=== PATIENT | male | born 1970 | race Caucasian/White ===

== ENCOUNTER 2016-06-01 11:19 | Inpatient (IN) | payer OTHER, MEDICAID ==
[~2016-06-01] VITALS: Ht 172.7 cm; Wt 49.0 kg
[~2016-06-01 11:19] MED LIST: DIF100 PO; LIPA1CAP23 PO; SSREG SUBCUT
--- NOTE | 2016-06-01 11:20 | NUR ---
Patient to ER bed 8 to gown for evaluation. Side rails up. Assumed care.
--- NOTE | 2016-06-01 11:21 | NUR ---
Pt presesnt to ED c/o Abd pain x 1 day. Pt h/o pancreatitis,hyperlipidemia,dm and bipolar. Pt appears to be in severe pain. Pt demanding w/ tx.
--- NOTE | 2016-06-01 11:30 | NUR ---
ER at bedside examining patient.
[2016-06-01 11:41] VITALS: BP 122/94; PULSE 12; RESP 16; TEMP 97.4; O2SAT 98
[2016-06-01 12:14] LABS: BASOPHILS # (AUTO) 0.1 K/uL (0.0-0.2); BASOPHILS % (AUTO) 1.3 % (0.0-2.0); EOSINOPHILS % (AUTO) 0.2 % (0.0-4.0); LYMPHOCYTES # (AUTO) 1.5 K/uL (1.0-5.5); LYMPHOCYTES % (AUTO) 16.4 % (20.5-51.5); MEAN CORPUSCULAR HEMOGLOBIN 23 pg (27-31); MEAN CORPUSCULAR HGB CONC 30 % (32-36); MEAN CORPUSCULAR VOLUME 77 fL (79.0-98.0); MONOCYTES # (AUTO) 0.4 K/uL (0.0-1.0); MONOCYTES % (AUTO) 4.3 % (1.7-9.3); NEUTROPHILS # (AUTO) 7.3 K/uL (1.8-7.7); NEUTROPHILS % (AUTO) 77.8 % (40.0-70.0); PLATELET COUNT (AUTO) 174 K/uL (130-430); RED BLOOD CELL COUNT(AUTO) 5.62 MIL/uL (4.2-6.2); RED CELL DISTRIBUTION WIDTH 16.9 % (9.0-15.0); WHITE BLOOD COUNT (AUTO) 9.3 K/uL (4.8-10.8)
[2016-06-01] MEDS ORDERED: NACL 0.9% 1,000 ML IV ONE ×3 (12:15→21:15)
[2016-06-01] MEDS ORDERED: HYDROmorphone 1 MG INJ. 1 MG/ML AMPUL IVP ONE ×2 (12:15→14:00)
[2016-06-01] MEDS ORDERED: DIPHENHYDRAMINE INJ 50 MG/ML VIAL IVP ONE (12:15)
[2016-06-01 12:27] LABS: CALCIUM 9.1 mg/dL (8.4-11.0); CREATININE 1.04 mg/dL (0.55-1.30)
--- NOTE | 2016-06-01 12:30 | NUR ---
pt medicated tolerated well. continuing to monitor.
[2016-06-01 12:31] LABS: ALBUMIN 4.4 g/dL (3.4-4.8); TOTAL BILIRUBIN 0.8 mg/dL (0.0-1.0); TOTAL PROTEIN, SERUM 7.9 g/dL (6.4-8.3)
[2016-06-01] MEDS ORDERED: ONDANSETRON HCL 4 MG/2 ML VIAL IVP ONE (13:15)
--- NOTE | 2016-06-01 13:30 | NUR ---
Pt tolerated medication for n/v. Pt requesting to be left alone afetr medication.
--- NOTE | 2016-06-01 14:30 | NUR ---
Pt medicated for pain. Pt tolerated wel..
--- NOTE | 2016-06-01 15:30 | NUR ---
Pt required iv access to be reestablished. Several attempts made befor establishing iv.
[2016-06-01] MEDS ORDERED: GLUCOSE 15 GM GEL (in 37.5 GM TUBE) PO PRN ×2 (15:45)
[2016-06-01] MEDS ORDERED: DEXTROSE 50%-WATER 50 ML DISP.SYRIN IVP PRN ×2 (15:45)
--- NOTE | 2016-06-01 16:05 | NUR ---
Patient will be admitted to care of . Admitted to Med Surg unit. Will go to room 105B. Summary report printed. Report given to Admission RN.
--- NOTE | 2016-06-01 16:09 | NUR ---
ADMISSION: The patient, SONIA DASILVA JR, 45 y/o, M admitted by JJ LANCE MD, was given written information regarding hospital policies, unit procedures and contact persons.
--- NOTE | 2016-06-01 16:10 | NUR ---
REFUSED PT REFUSES TO ANSWERS QUESTION AT THIS TIME. PT AWAKE, ALERT AND ORIENTED. REFUSES TO PUT THE SIDERAILS UP ON ONE SIDE. TRYING TO EDUCATE PT BUT REFUSES TO LISTEN AT THIS TIME. NURSE AIMEE AWARE. PT IN BED AT THIS TIME, NO DISTRESS NOTED. WANTS HIS PAIN MEDICATION.
[2016-06-01] MEDS ORDERED: MORPHINE 4 MG/ML INJ. SYRINGE IVP PRN (16:15)
[2016-06-01] MEDS ORDERED: MORPHINE 2 MG/ML INJ. SYRINGE IVP PRN (16:15)
[2016-06-01] MEDS ORDERED: ACETAMINOPHEN 325 MG TABLET PO PRN (16:15)
[2016-06-01] MEDS: D5/0.45 NS 1,000 ML IV SCH (17:06)
[2016-06-01] MEDS: DIPHENHYDRAMINE INJ 50 MG/ML VIAL IVP PRN ×2 (17:07→23:13)
[2016-06-01] MEDS: ONDANSETRON HCL 4 MG/2 ML VIAL IVP PRN ×2 (17:08→23:13)
[2016-06-01] MEDS: INSULIN REGULAR, HUMAN 100 UNITS/ML, 10 ML VIAL (novoLIN R) SUBCUT PRN ×2 (17:26→21:01)
[2016-06-01 17:27] VITALS: BP 146/88; PULSE 99; RESP 17; TEMP 98.2; O2SAT 100
--- NOTE | 2016-06-01 17:51 | NUR ---
Rounds: Pt sitting semi-fowlers in bed. Medicated for c/o pain, nausea, and generalized itching. Educated pt on need to call for assist prior to ambulating and pt refuses states "Why do I need to call?! I don't need help!" Pt is alert and oriented x4. Pt also refuses upper side rails at this time. Pt is irritable and easily agitated. Will attempt to re-educate pt at later time. Bed alarm on. Continue to monitor pt closely.
--- NOTE | 2016-06-01 18:43 | NUR ---
Closing Note: Pt sitting semi-fowlers in bed. Pt sleeping at this time, breathing even and unlabored on room air. Call light in reach. Bed alarm on. Endorse plan of care to SABRA RN.
--- NOTE | 2016-06-01 19:30 | NUR ---
notes pt awaken for vs but refused ,pt also refusing to call for a nurse if he needs to go to the bathroom ,states he does not need to call because he has been walking for 45 years.asking for pain medication but was told that it is not time yet,call light within reach,safety measures in progress.continue to monitor.bed alarm turned on.
--- NOTE | 2016-06-01 20:27 | NUR ---
notes lab here to draw blood pt refusing.
--- NOTE | 2016-06-01 20:51 | NUR ---
NOTES ACCUCHECK WAS [address] LANCE
--- NOTE | 2016-06-01 21:10 | NUR ---
notes sakshi from the lab here to draw the pts blood .lab intern.states the pt refused.pt keeps asking for pain medication.was explained to him that the dr will put the order in but it takes a few min.for the pharmacy to put the order in the computer.pt was told this .every time he asked where is the pain medication.
[2016-06-01] MEDS: HYDROmorphone 1 MG INJ. 1 MG/ML AMPUL IVP PRN (21:30)
[2016-06-01 21:33] VITALS: BP 124/77; PULSE 97; RESP 18; TEMP 97.8; O2SAT 100
--- NOTE | 2016-06-01 21:48 | NUR ---
NOTES DR MATUTE IS AT THE BEDSIDE.
--- NOTE | 2016-06-01 21:54 | NUR ---
PAIN PAIN MEDICATION GIVEN ORDERED. VS STABLE. WILL CONTINUE TO MONITOR AND REASSESS.
--- NOTE | 2016-06-01 23:31 | NUR ---
NOTES PT RESTING QUIETLY.CALL LIGHT WITHIN REACH. CONTINUE TO MONITOR.
[2016-06-02 01:17] VITALS: BP 122/68; PULSE 82; RESP 18; TEMP 98.2; O2SAT 99
[2016-06-02] MEDS: HYDROmorphone 1 MG INJ. 1 MG/ML AMPUL IVP PRN (01:30)
[2016-06-02] MEDS: D5/0.45 NS 1,000 ML IV SCH ×2 (01:31→12:45)
--- NOTE | 2016-06-02 01:35 | NUR ---
CONSULT: DR. MATUTE CAME LAST NIGHT HE TOOK CARE OF THE CONSULT ALREADY.
--- NOTE | 2016-06-02 01:43 | NUR ---
notes pt resting with eyes closed,continue to monitor.
--- NOTE | 2016-06-02 02:49 | NUR ---
notes pt asking for pain medication.RN was notified.
--- NOTE | 2016-06-02 03:17 | NUR ---
notes pt keeps turning his light on and asking for pain medication ,was told that he can have pain medication at 0330.pt states he might go out side and get some fresh air.pt was told that he can not go out side at this time.pt stated 'WHY,I WENT OUTSIDE LAST TIME I WAS HERE.
[2016-06-02] MEDS: HYDROmorphone 2 MG/ML VIAL IVP PRN ×7 (04:31→23:29)
--- NOTE | 2016-06-02 04:33 | NUR ---
vitals pt refused to have his vitals taken . marina sales and service supervisor aware.
--- NOTE | 2016-06-02 05:00 | NUR ---
PT OUT OF BED PT GOT DRESSED IN HIS SHIRT AND PANTS. WALKING WITH IV POLE AND SAID HE'S GOING OUTSIDE. TOLD PT NOW IS NOT A GOOD TIME. PAIN MED GIVEN 30MIN AGO. EDUCATED PT ON FALL RISKS. PT SAYS HE FINE AND HE'S NOT GOING TO FALL. HEALTH SCIENCES MANAGER WALKING CLOSE BY AND SECURITY CALLED.
--- NOTE | 2016-06-02 05:18 | NUR ---
notes pt returned to his room ,security at his side. will continue to monitor.
--- NOTE | 2016-06-02 05:40 | NUR ---
notes slab off mill tender is at the bedside to draw blood. pt is going to let her draw his blood because she did a good job when he was in the ER yesterday.
[2016-06-02] MEDS: ONDANSETRON HCL 4 MG/2 ML VIAL IVP PRN ×2 (05:55→20:21)
[2016-06-02] MEDS: DIPHENHYDRAMINE INJ 50 MG/ML VIAL IVP PRN ×3 (05:56→20:22)
[2016-06-02] MEDS: INSULIN REGULAR, HUMAN 100 UNITS/ML, 10 ML VIAL (novoLIN R) SUBCUT PRN ×2 (06:07→11:18)
--- NOTE | 2016-06-02 06:13 | NUR ---
closing notes accucheck was 202 insulin per s/s given jello given per request,will endorse the care of the pt to the day nurse.
[2016-06-02 07:25] LABS: ALBUMIN 3.6 g/dL (3.4-4.8); CALCIUM 8.5 mg/dL (8.4-11.0); CREATININE 0.77 mg/dL (0.55-1.30); POTASSIUM 3.5 mmol/L (3.5-5.1); TOTAL BILIRUBIN 0.5 mg/dL (0.0-1.0); TOTAL PROTEIN, SERUM 6.7 g/dL (6.4-8.3)
--- NOTE | 2016-06-02 07:25 | NUR ---
am rounds; patient lying on the bed,awake,alert and oriented x4. ivf on going at left arm intact. no distress.call light with in reach. needs attended to. patient refused bed alarm on.
[2016-06-02 08:04] LABS: BASOPHILS % (AUTO) 0.6 % (0.0-2.0); EOSINOPHILS % (AUTO) 0.4 % (0.0-4.0); HEMATOCRIT 36.3 % (36-54); HEMOGLOBIN 11.3 g/dL (14.0-18.0); LYMPHOCYTES % (AUTO) 20.6 % (20.5-51.5); MEAN CORPUSCULAR HEMOGLOBIN 24 pg (27-31); MEAN CORPUSCULAR HGB CONC 31 % (32-36); MEAN CORPUSCULAR VOLUME 77 fL (79.0-98.0); MONOCYTES # (AUTO) 0.4 K/uL (0.0-1.0); MONOCYTES % (AUTO) 8.9 % (1.7-9.3); NEUTROPHILS # (AUTO) 3.6 K/uL (1.8-7.7); NEUTROPHILS % (AUTO) 69.5 % (40.0-70.0); RED BLOOD CELL COUNT(AUTO) 4.73 MIL/uL (4.2-6.2); RED CELL DISTRIBUTION WIDTH 17.2 % (9.0-15.0)
[2016-06-02 08:05] LABS: PLATELET COUNT (AUTO) 103 K/uL (130-430)
--- NOTE | 2016-06-02 08:16 | NUR ---
pain meds: c/o abominal pain and due iv pain meds given per request.
[2016-06-02 08:34] VITALS: BP 128/80; PULSE 78; RESP 19; TEMP 98; O2SAT 100
--- NOTE | 2016-06-02 09:36 | NUR ---
Patient hygiene : Patient stated that he was itchy and uncomfortable. Offer patient a bed bath and for his linen to be changed. The patient refused and yelled stated that that would not help him. Notified the RN
--- NOTE | 2016-06-02 09:46 | NUR ---
PAGED: Paged dr barfield for pt c/o itching,iv benadryl not due yet,and pt wants meds for itching.left message c/o exchange corona.
--- NOTE | 2016-06-02 10:04 | NUR ---
Nutrition Update Inocencio Scale 18 noted. Pt admitted for pancreatitis. Diet: clear liquid BMI: 16 kg/m2 RD to follow per nutrition care standards.
--- NOTE | 2016-06-02 10:11 | NUR ---
benadryl: give benadryl 25mg ivp x [address] barfield.
--- NOTE | 2016-06-02 10:13 | NUR ---
rn notes: accompanied patient outside and went back to his room after 20mins.
[2016-06-02] MEDS ORDERED: DIPHENHYDRAMINE INJ 50 MG/ML VIAL IVP ONE (10:15)
--- NOTE | 2016-06-02 10:20 | NUR ---
ITCHING: DUE IV BENADRYL 25MG GIVEN PER REQUEST.
--- NOTE | 2016-06-02 11:22 | NUR ---
PAIN MEDS: C/O ABDOMINAL PAIN AND DUE IV PAIN MEDS GIVEN PER REQUEST.
--- NOTE | 2016-06-02 11:23 | NUR ---
BLOOD SUGAR: BLOOD SUGAR TAKEN,WITH INSULIN COVERAGE GIVEN PER SLIDING SCALE. BLOOD INAHU=540TX/DL ,MD INFORMED WILL SEE PATIENT.
[2016-06-02 12:12] VITALS: BP 113/67; PULSE 58; RESP 16; TEMP 98; O2SAT 97
--- NOTE | 2016-06-02 12:17 | NUR ---
Consult Called Reason for consultation: Pancreatis Was consult called: yes Person who was notified:Luci Coater Operator Physician: SARAN PRATT Ordered by : Shante Heard MD
--- NOTE | 2016-06-02 12:28 | NUR ---
rounds: resting. stable.
--- NOTE | 2016-06-02 12:53 | NUR ---
Consult Called Reason for consultation: Diabetes Was consult called: Yes Person who was notified: Liv Consulting Physician: Andrés Graves MD Entry Level Marketing Representative Specialty ENDO Ordered by: Shante Heard MD
--- NOTE | 2016-06-02 14:08 | NUR ---
PAIN MEDS: C/O ABDOMINAL PAIN AND DUE IV PAIN MEDS GIVEN PER REQUEST.
--- NOTE | 2016-06-02 15:58 | NUR ---
Nutrition Note MARIANO was instructed by Dr. Graves to advance pt's diet to full liquid for now until pt is seen by DARIA NARVAEZ. MARIANO modified pt's diet order via TO/RB. RD to continue to follow per nutrition care standards. Addendum: 06/02/16 at [address] Dr. Graves stated that DARIA NARVAEZ may want to keep pt clear liquid as written in most recent progress note in pt's hard chart. MARIANO modified diet order via TO/RB to clear liquid diet.
--- NOTE | 2016-06-02 16:04 | NUR ---
ITCHING: C/O ITCHING AND DUE IV BENADRYL GIVEN PER REQUEST.
[2016-06-02 16:50] VITALS: BP 112/91; PULSE 80; RESP 16; TEMP 97.6; O2SAT 95
[2016-06-02] MEDS: INSULIN ASPART 100 UNITS/ML, 10 ML VIAL (NovoLOG) SUBCUT PRN (17:27)
--- NOTE | 2016-06-02 17:29 | NUR ---
BLOOD SUGAR: BLOOD SUGAR TAKEN,WITH INSULIN COVERAGE GIVEN PER SLIDING SCALE. WILL CALL ENDO FOR HIGH BLOOD SUGAR.
--- NOTE | 2016-06-02 19:40 | NUR ---
end of shift: endorsed to night nurse,pt in stable. paged dr valerio for high blood sugar.continue to monitor.
--- NOTE | 2016-06-02 19:45 | NUR ---
PAGED PAGED Oscar ESPAÑAUHAIR AT [phone] SPOKE WITH BESSY.
[2016-06-02 20:00] VITALS: BP 118/68; PULSE 88; RESP 18; TEMP 98.2; O2SAT 93
--- NOTE | 2016-06-02 20:00 | NUR ---
OPENING ASSESSMENT PATIENT ALERT/ORIENTED X4. SPEECH IS CLEAR AND APPROPRIATE. AMBULATES WITH STEADY GAIT @ THIS TIME.. REFUSED BED ALARM. IS A FALL PRECAUTION. CALL LIGHT WITHIN EASY ACCESS. EDUCATED TO CALL NURSE FOR ALL NEEDS AND WHEN GETTING OUT OF BED. HAS IV LAC 18 G. SITE IS CLEAR. VOIDING CLEAR YELLOW.
[2016-06-02] MEDS: KCL 20 mEq in D5NS 1000 mL 1,000 ML IV SCH (20:10)
--- NOTE | 2016-06-02 20:20 | NUR ---
PAIN/NAUSEA/ITCHING MEDICATED FOR PAIN WITH DILAUDID 2MG IVP, NAUSEA WITH ZOFRAN 4MG IVP, ITCHING BENADRYL 25MG IVP.
--- NOTE | 2016-06-02 21:00 | NUR ---
BLOOD SUGAR 207 GAVE LEVEMIR ORDERED. REFUSED NOVOLOG INSULIN COVERAGE @ THIS TIME.
--- NOTE | 2016-06-02 23:30 | NUR ---
PAIN DILAUDID 2MG IVP GIVEN FOR ABDOMINAL PAIN.
--- NOTE | 2016-06-03 00:35 | NUR ---
ITCHING BENADRYL 25MG IVP FOR ITCHING.
[2016-06-03] MEDS: DIPHENHYDRAMINE INJ 50 MG/ML VIAL IVP PRN ×7 (00:36→19:40)
[2016-06-03 00:45] VITALS: BP 109/69; PULSE 86; RESP 18; TEMP 98.6; O2SAT 99
--- NOTE | 2016-06-03 02:50 | NUR ---
PAIN/NAUSEA DILAUDID 2MG IVP FOR PAIN AND ZOFRAN 4MG IVP FOR NAUSEA @ THIS TIME.
[2016-06-03] MEDS: HYDROmorphone 2 MG/ML VIAL IVP PRN ×8 (02:52→22:54)
[2016-06-03] MEDS: ONDANSETRON HCL 4 MG/2 ML VIAL IVP PRN ×3 (02:53→22:54)
[2016-06-03] MEDS: KCL 20 mEq in D5NS 1000 mL 1,000 ML IV SCH ×3 (04:19→23:30)
--- NOTE | 2016-06-03 04:20 | NUR ---
ITCHING BENADRYL 25MG IVP FOR ITCHING.
[2016-06-03 04:23] VITALS: BP 115/75; PULSE 86; RESP 18; TEMP 98.2; O2SAT 100
--- NOTE | 2016-06-03 05:45 | NUR ---
PAIN DILAUDID 2MG IVP GIVEN FOR ABDOMINAL PAIN.
--- NOTE | 2016-06-03 06:00 | NUR ---
BLOOD SUGAR 60 GAVE D50 1AMP.
--- NOTE | 2016-06-03 06:15 | NUR ---
BLOOD SUGAR 169 BLOOD SUGAR 169 AFTER GIVEN D50 1 AMP
--- NOTE | 2016-06-03 06:30 | NUR ---
CLOSING NOTES PT. REFUSES BED ALARM. CONTINUES FALL RISK. AMBULATES IN HALLWAY WITHOUT TELLING NURSE. STATES PAIN MEDICATION IS INEFFECTIVE. CALL LIGHT WITHIN EASY ACCESS. INFORMED PATIENT TO CALL NURSE FOR ALL NEEDS AND NOT TO GET OUT OF BED WITHOUT ASSIST.
[2016-06-03 08:11] VITALS: BP 145/87; RESP 18; TEMP 96.8; O2SAT 100
[2016-06-03 09:09] LABS: CALCIUM 8.4 mg/dL (8.4-11.0); CREATININE 0.61 mg/dL (0.55-1.30); POTASSIUM 3.1 mmol/L (3.5-5.1)
[2016-06-03 09:14] LABS: TOTAL BILIRUBIN 0.5 mg/dL (0.0-1.0); TOTAL PROTEIN, SERUM 7.3 g/dL (6.4-8.3)
--- NOTE | 2016-06-03 09:45 | NUR ---
Called Orquidea Goncalves R. about low K level -3.1.Awaiting for answer.
[2016-06-03] MEDS ORDERED: POTASSIUM CHLORIDE 20 MEQ TAB.PRT.SR PO ONE (11:00)
--- NOTE | 2016-06-03 12:37 | NUR ---
PT WANTS TO WALK AFTER GETTING HIS PAIN SHOT. INSTRUCTED PT NOT TO WALK AT THIS TIME BECAUSE HE JUST HAD HIS PAIN SHOTS BUT PT GETS ANGRY AND STILL INSISTED TO WALK.PT WALKS OUT ON THE ROOM.
[2016-06-03 13:04] VITALS: BP 120/75; PULSE 77; RESP 16; TEMP 97.1; O2SAT 98
[2016-06-03 13:15] VITALS: BP 112/69; PULSE 94; RESP 15; TEMP 97.1; O2SAT 100
--- NOTE | 2016-06-03 16:00 | NUR ---
IV IV WAS LEAKING AT THIS TIME. 3 RN'S ATTEMPTED TO START BUT UNSUCCESSFUL.
--- NOTE | 2016-06-03 17:00 | NUR ---
PAGED DR. LANCE RE: UNABLE TO START AN IV. WAITING FOR MD TO CALL BACK.
[2016-06-03 17:13] VITALS: BP 152/77; PULSE 67; RESP 18; TEMP 98.9; O2SAT 93
--- NOTE | 2016-06-03 17:14 | NUR ---
DIET PT WANTS TO EAT SANDWICH. ASKED DR. LAUGHLIN AND ORDERED TO CHANGED DIET TO FULL LIQUID.
--- NOTE | 2016-06-03 17:40 | NUR ---
BLOOD SUGAR BLOOD SUGAR IS 177. PT REFUSED INSULIN AT THIS TIME.
[2016-06-03] MEDS: LIPASE/PROTEASE/AMYLASE 1 CAP PO SCH (17:43)
--- NOTE | 2016-06-03 18:30 | NUR ---
CALLED DR. LANCE CALLED BACK AND ORDERED TO HAVE PICC LINE TONIGHT. PER IF THEY CAN'T PUT PICC LINE TONIGHT. CALLED DR. FONTENOT TO PUT A CENTRAL LINE TONIGHT. CHARGE NURSE AWARE.
[2016-06-03 19:22] LABS: INR 1.1 (0.80-1.20); PROTHROMBIN TIME 11.8 SECS (9.5-12.5)
--- NOTE | 2016-06-03 19:49 | NUR ---
Medicated with Dilaudid 2 mg and Benadryl 25 mg IVP on the left AC slow IVP. PICC line nurse will be coming tonight to insert a PICC LINE
--- NOTE | 2016-06-03 20:00 | NUR ---
Initial Notes Received patient laying in bed, awake, alert, oriented, irritable and uncooperative. Patient denies any acute distress at this time. Breathing even and unlabored on room air. Patient demanded current IV access removed due to leakage when flushed, removed per patient request, patient tolerated well. Needs addressed. Educated patient on use of call light for assistance and fall precautions, patient verbalized understanding. Call light in hand fall precautions in place, will continue to monitor. Spoke with PICC line nurse on telephone, nurse is on his way. Obtained consent for PICC line from patient, placed in chart.
--- NOTE | 2016-06-03 21:00 | NUR ---
Midline Inserted PICC line nurse unable to insert PICC. Midline inserted right upper arm, patent/clean/dry, no S/S infiltration noted. Patient tolerated well.
--- NOTE | 2016-06-03 21:57 | NUR ---
paged for Dr Graves, dialed . s/w Alon.
--- NOTE | 2016-06-03 22:00 | NUR ---
Refused Insulin and IVF, MD Aware Patient fingerstick bloodsugar 434. Rechecked other hand resulted in 455. Patient refusing sliding scale coverage and levemir insulin ordered. Educated patient on importance of controlling blood sugar and insulin ordered, patient continue to refuse. Dr. Graves paged and made aware, no new orders received. Will continue to monitor.
--- NOTE | 2016-06-04 | NUR ---
Rounds Patient resting in bed, awake, irritable. Patient denies any acute distress. Breathing even and unlabored. Patient continue to refuse IVF when offered, stating he only wants real food. Educated patient on ordered full liquid diet, and brought patient broths. Needs addressed. Call light in hand, fall precautions in place. Will continue to monitor.
[2016-06-04] MEDS: DIPHENHYDRAMINE INJ 50 MG/ML VIAL IVP PRN ×6 (00:01→21:20)
--- NOTE | 2016-06-04 00:45 | NUR ---
REFUSAL pt refused to have his vitals taken. WALLACE Burch is aware.
[2016-06-04] MEDS: HYDROmorphone 2 MG/ML VIAL IVP PRN ×7 (01:56→21:21)
--- NOTE | 2016-06-04 02:00 | NUR ---
Rounds Patient resting in bed, awake. Patient remains uncooperative and irritable. Denies any acute distress. Patient medicated for pain per MD orders. Call light in hand, fall precautions in place. Will continue to monitor.
[2016-06-04 03:44] VITALS: BP 140/80; PULSE 80; RESP 18; TEMP 98; O2SAT 98
--- NOTE | 2016-06-04 04:00 | NUR ---
Rounds and Noncompliance Patient resting in bed, awake, denies any acute distress or pain. Patient decided he wanted to go for a walk outside, and started to leave unit. I asked patient to allow someone to accompany him for safety, patient became irate and walked off unit on his own. Security was called and asked to keep an eye on patient while he walked around the building. Patient returned back to room approximately 15min later, in no acute distress. Call light in hand, fall precautions in place, will continue to monitor.
--- NOTE | 2016-06-04 06:01 | NUR ---
Noncompliance and Refusing Fingerstick Patient refusing fingerstick blood sugar at this time. Educated patient on importance, patient continue to refuse, will endorse to oncoming nurse. Patient walking off unit, says he is going for a walk, refusing to be accompanied by staff.
--- NOTE | 2016-06-04 06:10 | NUR ---
Patient back in room. Patient returned back to room, in no apparent distress. Patient continue to refuse fingerstick when asked.
--- NOTE | 2016-06-04 06:36 | NUR ---
Closing Notes Patient resting in bed, awake. Denies any acute distress or pain at this time. Breathing even and unlabored on room air. IV site patent/clean/dry, no S/S infection/infiltration noted. Needs addressed throughout shift. Call light in hand, fall precautions in place. Will continue to monitor for changes and safety, and endorse all patient care/needs to oncoming nurse.
--- NOTE | 2016-06-04 07:58 | NUR ---
AM ROUNDS: Patient is complaining of pain. Will medicate as ordered. Will continue to monitor.
[2016-06-04] MEDS: LIPASE/PROTEASE/AMYLASE 1 CAP PO SCH ×3 (08:14→17:39)
[2016-06-04] MEDS: KCL 20 mEq in D5NS 1000 mL 1,000 ML IV SCH ×2 (08:14→19:36)
[2016-06-04] MEDS: PANTOPRAZOLE SODIUM 40 MG TAB PO SCH (08:14)
[2016-06-04 08:23] VITALS: BP 124/79; PULSE 78; RESP 20; TEMP 98.8; O2SAT 99
--- NOTE | 2016-06-04 09:51 | NUR ---
MD ROUNDS: Dr. Stanton in to see patient.
--- NOTE | 2016-06-04 10:25 | NUR ---
MD ROUNDS: Dr. Heard in to see patient.
[2016-06-04] MEDS: INSULIN ASPART 100 UNITS/ML, 10 ML VIAL (NovoLOG) SUBCUT PRN ×2 (11:22→17:43)
[2016-06-04 12:00] VITALS: BP 117/83; PULSE 89; RESP 20; TEMP 99.3; O2SAT 98
[2016-06-04 12:33] LABS: CALCIUM 8.3 mg/dL (8.4-11.0); CREATININE 0.75 mg/dL (0.55-1.30); POTASSIUM 3.3 mmol/L (3.5-5.1)
[2016-06-04 12:46] LABS: ALBUMIN 3.5 g/dL (3.4-4.8); TOTAL BILIRUBIN 0.3 mg/dL (0.0-1.0); TOTAL PROTEIN, SERUM 6.5 g/dL (6.4-8.3)
[2016-06-04 12:51] LABS: BASOPHILS # (AUTO) 0.1 K/uL (0.0-0.2); BASOPHILS % (AUTO) 1.2 % (0.0-2.0); EOSINOPHILS # (AUTO) 0.1 K/uL (0.0-0.4); EOSINOPHILS % (AUTO) 1.5 % (0.0-4.0); HEMATOCRIT 33.3 % (36-54); HEMOGLOBIN 10.6 g/dL (14.0-18.0); LYMPHOCYTES # (AUTO) 1.2 K/uL (1.0-5.5); LYMPHOCYTES % (AUTO) 27.3 % (20.5-51.5); MEAN CORPUSCULAR HEMOGLOBIN 24 pg (27-31); MEAN CORPUSCULAR HGB CONC 32 % (32-36); MEAN CORPUSCULAR VOLUME 75 fL (79.0-98.0); MONOCYTES # (AUTO) 0.2 K/uL (0.0-1.0); MONOCYTES % (AUTO) 4.4 % (1.7-9.3); NEUTROPHILS # (AUTO) 2.8 K/uL (1.8-7.7); NEUTROPHILS % (AUTO) 65.6 % (40.0-70.0); PLATELET COUNT (AUTO) 89 K/uL (130-430); RED BLOOD CELL COUNT(AUTO) 4.43 MIL/uL (4.2-6.2); RED CELL DISTRIBUTION WIDTH 17.3 % (9.0-15.0); WHITE BLOOD COUNT (AUTO) 4.4 K/uL (4.8-10.8)
--- NOTE | 2016-06-04 12:51 | NUR ---
PATIENT RESTING: Patient resting quietly. No acute distress noted. Vital signs within normal range.
[2016-06-04 16:00] VITALS: BP 88/46; PULSE 84; RESP 21; TEMP 98.4; O2SAT 98
--- NOTE | 2016-06-04 16:10 | NUR ---
PATIENT RESTING: Patient resting quietly. No acute distress noted. Vital signs within normal range.
--- NOTE | 2016-06-04 18:19 | NUR ---
CLOSING NOTE: All needs met. No change in assessment. Will endorse to NOC shift nurse.
[2016-06-04 20:00] VITALS: BP 109/72; PULSE 91; RESP 18; TEMP 98.2
--- NOTE | 2016-06-04 20:00 | NUR ---
Opening Note Report received from Jas GONSALEZ. Patient is in stable condition. Ambulate around the unit frequently. MARIAH jerome is running D5NS+20mEqKCL@100. Patient is requesting pain meds alejandra three hours. Education provided to reduce risk of falls. Call light is within reach. Instructed to use it whenever in need of assistance.
--- NOTE | 2016-06-04 21:20 | NUR ---
Blood sugar Current blood sugar is 309. Will recheck and call MD if necessary.
--- NOTE | 2016-06-04 21:52 | NUR ---
Blood sugar Current blood sugar is 280. Coverage with Novolog is only before meals. Stated to the patient that I would call MD for further orders. Patient stated not to call MD and that he will refuse any medication for his current blood sugar.
[2016-06-05 00:18] VITALS: BP 149/61; PULSE 81; RESP 18; TEMP 98.4; O2SAT 99
--- NOTE | 2016-06-05 00:30 | NUR ---
Blood sugar Checked blood sugar per patient's request. Current blood sugar is 259. Novolog coverage is only before meals. Offered to call MD for orders. Patient stated not to because he will refuse any medication for the blood sugar.
[2016-06-05] MEDS: HYDROmorphone 2 MG/ML VIAL IVP PRN ×5 (00:43→15:06)
[2016-06-05] MEDS: ONDANSETRON HCL 4 MG/2 ML VIAL IVP PRN ×2 (01:19→13:01)
[2016-06-05] MEDS: DIPHENHYDRAMINE INJ 50 MG/ML VIAL IVP PRN ×6 (01:19→21:21)
--- NOTE | 2016-06-05 02:46 | NUR ---
Rounds Patient is resting in bed. Call light is within reach.
[2016-06-05 04:50] VITALS: BP 94/65; PULSE 84; RESP 16; TEMP 98.4; O2SAT 95
--- NOTE | 2016-06-05 04:50 | NUR ---
Rounds Current blood pressure is 94/64. Educated the patient on only taking pain medication and Benadryl as needed. However, patient keeps on request pain medication every three hours and Benadryl every four hours.
[2016-06-05] MEDS: KCL 20 mEq in D5NS 1000 mL 1,000 ML IV SCH ×3 (05:13→16:58)
--- NOTE | 2016-06-05 06:42 | NUR ---
Closing Note Patient is in stable condition. Currently ambulating in the unit. IV is RUE midline running D5NS+20mEq@100. Educating the patient on calling for assistance especially after receiving pain medication in order to prevent falls. Will give report to the oncoming nurse.
--- NOTE | 2016-06-05 07:49 | NUR ---
RN OPENING NOTES PT STANDING UPON ASSESSMENT AND APPEARS AGITATED, WANTS MORE FOOD THAN WAS PROVIDED PT A/O X4, VS: 96.9 TEMP, 135/88, 90 HR, 20RR, 94% ROOM AIR, PAIN 10/10 BED IN LOW POSITION AND CALL LIGHT WITHIN REACH
[2016-06-05 08:02] VITALS: BP 135/85; PULSE 90; RESP 18; TEMP 96.9; O2SAT 94
[2016-06-05] MEDS: PANTOPRAZOLE SODIUM 40 MG TAB PO SCH (08:31)
[2016-06-05] MEDS: LIPASE/PROTEASE/AMYLASE 1 CAP PO SCH ×3 (08:31→16:57)
--- NOTE | 2016-06-05 09:21 | NUR ---
Patient ambulating in hallway. Steady gait noted. Request the patient not to go outside with the IV. Addendum: 06/05/16 at 0928 by Vero Weinberg RN Pt reeducated that pain medication and Benadryl do increase his fall risk and he verbalized understanding.
--- NOTE | 2016-06-05 10:12 | NUR ---
RN ROUNDS PT STANDING AT BEDSIDE AND SAID HE WAS COMFORTABLE
--- NOTE | 2016-06-05 10:51 | NUR ---
DR LANCE AT BEDSIDE DR LANCE CHANGED DIET TO SOFT AND TOLD PT HE CAN DISCHARGE TODAY IF PT CAN TOLERATE LUNCH
--- NOTE | 2016-06-05 11:11 | NUR ---
Patient back from ambulating. Back to his room, stable.
--- NOTE | 2016-06-05 11:26 | NUR ---
PICC line assessment PICC line flushed with 10ml NS. Noted blood return to the red port only. Other purple port flushes but has no blood return noted. Site is intact with no signs of infiltration noted. Unused ports covered with blue steri caps.
[2016-06-05] MEDS: INSULIN ASPART 100 UNITS/ML, 10 ML VIAL (NovoLOG) SUBCUT PRN ×2 (11:50→17:44)
[2016-06-05 12:10] VITALS: BP 114/71; PULSE 79; RESP 18; TEMP 99.1; O2SAT 100
--- NOTE | 2016-06-05 12:52 | NUR ---
Emesis. Patient threw up 100ml of emesis after eating approx 30% of his lunch. Dr Heard in ER, paged.
--- NOTE | 2016-06-05 12:53 | NUR ---
PT NOT TOLERATING CHANGE IN DIET PT CAN NOT TOLERATE THE CHANGE TO MECH SOFT DIET. EMESIS 100 ML, DR LANCE INFORMED
--- NOTE | 2016-06-05 12:55 | NUR ---
Dr Heard informed that patient did not tolerate the diet and that he vomited 100ml. pt not being discharged yet.
--- NOTE | 2016-06-05 14:05 | NUR ---
RN ROUNDS PT IS STANDING AT BEDSIDE. PAIN MANAGEMENT APPEARS EFFECTIVE HE IS WALKING, LAUGHING AND EXHIBITING NO SIGN OF SEVERE PAIN.
--- NOTE | 2016-06-05 15:33 | NUR ---
Accucheck spot check 560mg/dl Pt states he feels like his blood glucose is low. Pt glucose is 50mg/dl. Pt requesting juice instead of glucose gel. Will reassess in 15 minutes. Addendum: 06/05/16 at 1609 by Vero Weinberg RN Accucheck 50mg/dl. Reassessed after 15 min - 101mg/dl.
[2016-06-05 15:38] VITALS: BP 105/65; PULSE 80; RESP 16; TEMP 97.8; O2SAT 99
--- NOTE | 2016-06-05 16:11 | NUR ---
Dietitian Mariola at bedside discussing pts diet and snacking for his diabetes.
--- NOTE | 2016-06-05 16:15 | NUR ---
RN ROUNDS PT IN BED RESTING AND APPEARS COMFORTABLE. CALL LIGHT WITHIN REACH
[2016-06-05 16:34] VITALS: Ht 172.7 cm; Wt 49.0 kg
--- NOTE | 2016-06-05 16:37 | NUR ---
Pt back from ambulating in hallway, per security, pt was outside smoking. Pt has steady gait.
--- NOTE | 2016-06-05 18:00 | NUR ---
Spoke with Dr Heard informed him that patient is still at the hospital. He asked what happened earlier and I repeated information about patient not tolerating diet at lunch time. Informed MD that I will assess pt with dinner to see if he tolerates. Md stated to discharge if he tolerates.
--- NOTE | 2016-06-05 18:12 | NUR ---
RN ROUNDS PATIENT EATING DINNER IN BED. PER DR LANCE, PT CAN BE DISCHARGED TONIGHT IF HE TOLERATES HIS MEAL. WILL CONTINUE TO MONITOR
--- NOTE | 2016-06-05 18:28 | NUR ---
Patient vomited . Dr Orquidea wood.
[2016-06-05] MEDS: HYDROmorphone 1 MG INJ. 1 MG/ML AMPUL IVP PRN ×2 (18:49→23:53)
--- NOTE | 2016-06-05 19:00 | NUR ---
RN CLOSING ROUNDS PT STANDING BY BEDSIDE AND IS TALKING JOVIAL WITH THE STAFF
[2016-06-05 19:12] VITALS: BP 107/68; PULSE 81; RESP 18; TEMP 98.4; O2SAT 99
--- NOTE | 2016-06-05 19:12 | NUR ---
INITIAL ROUNDS RECVD PT IN BED, A/A/OX3. NO C/O PAIN AND NO DISTRESS NOTED @ THIS TIME. V/S 107/68,98.4,81,18,99% RA. MIDLINE NOTED TO DAVID, NO INFILTRATE, WITH GOOD BLOOD RETURN ONLY WITH THE RED LUMEN. ALL EXTREMITIES ARE STRONG, AMBULATORY. DISCUSSED PLAN OF CARE WITH PT AND VERBALIZED UNDERSTANDING. CALL LIGHT WITHIN REACH, WILL CONT TO MONITOR.
--- NOTE | 2016-06-05 21:12 | NUR ---
ROUNDS PT IN BED WATCHING TV. NO S/S OF PAIN AND NO DISTRESS NOTED. BED IN LOW POSITION AND CALL LIGHT WITHIN REACH. WILL CONT TO MONITOR.
--- NOTE | 2016-06-05 23:12 | NUR ---
ROUNDS ADMIN DILAUDID PRN FOR GEN PAIN. WILL REASSESS AFTER 1 HOUR.
--- NOTE | 2016-06-05 23:55 | NUR ---
ADMIN DILAUDID ADMIN DILAUDID PRN FOR PAIN. WILL REASSESS AFTER 1 HOUR.
[2016-06-06] VITALS: BP 142/86; PULSE 70; RESP 16; TEMP 98.7; O2SAT 100
--- NOTE | 2016-06-06 01:12 | NUR ---
ROUNDS PT AWAKE @ THIS TIME, WATCHING TV. NO C/O PAIN AND NO SOB NOTED. CALL LIGHT WITHIN REACH, WILL CONT TO MONITOR.
--- NOTE | 2016-06-06 03:12 | NUR ---
ROUNDS PT IS IS AMBULATING IN HALLWAY @ THIS TIME. NO S/S OF PAIN OR ANY DISTRESS NOTED. WILL CONT TO MONITOR.
[2016-06-06] MEDS: DIPHENHYDRAMINE INJ 50 MG/ML VIAL IVP PRN ×2 (03:33→08:39)
[2016-06-06] MEDS: HYDROmorphone 2 MG/ML VIAL IVP PRN ×2 (03:35→09:25)
--- NOTE | 2016-06-06 03:37 | NUR ---
ADMIN DILAUDID AND BENADRYL ADMIN DILAUDID PRN FOR GEN PAIN. PT ALSO ASKED FOR BENADRYL D/T GEN ITCH. WILL REASSESS AFTER 1 HOUR.
[2016-06-06 04:36] VITALS: BP 122/74; PULSE 82; RESP 18; TEMP 98.9; O2SAT 94
--- NOTE | 2016-06-06 05:37 | NUR ---
ROUNDS PT IS AWAKE @ THIS TIME, WATCHING TV. NO C/O PAIN AND NO DISTRESS NOTED. BED IN LOW POSITION WITH CALL LIGHT WITHIN REACH. WILL CONT TO MONITOR.
--- NOTE | 2016-06-06 05:58 | NUR ---
SNACKS PROVIDED PT C/O OF BEING HUNGRY, SUGAR FREE JELLO AND BISCUIT PROVIDED. NO C/O PAIN @ THIS TIME. WILL CONT TO MONITOR.
--- NOTE | 2016-06-06 06:57 | NUR ---
FINAL NOTES PT IS AWAKE WAITING FOR BREAKFAST @ THIS TIME. NO S/S OF PAIN OR DISTRESS NOTED. V/S ARE WNL. ALL NEEDS MET AND ANTICIPATED BY NOC NURSES. BED IN LOW POSITION WITH CALL LIGHT WITHIN REACH. ENDORSED.
[2016-06-06 07:59] VITALS: BP 127/81; PULSE 76; RESP 18; TEMP 98.4; O2SAT 99
--- NOTE | 2016-06-06 08:00 | NUR ---
NOTE PT LYING ON SIDE OF BED AND ATE ALL HIS SOFT/LOW FIBRE BLAND DIET BREAKFAST. NO N/V NOTED. PT HAS NO SOB/RESP DISTRESS OR PAIN/DISCOMFORT NOTED AT THIS TIME. IVF'S INFUSING THROUGH RIGHT UPPER ARM MIDLINE. PT REQUESTING MORE COFFEE WITH SWEET AND LOW. CALL LIGHT WITHIN REACH.
[2016-06-06] MEDS: PANTOPRAZOLE SODIUM 40 MG TAB PO SCH (08:39)
[2016-06-06] MEDS: LIPASE/PROTEASE/AMYLASE 1 CAP PO SCH (08:39)
--- NOTE | 2016-06-06 10:00 | NUR ---
NOTE PT AMBULATING IN HALLWAY WITH IV POLE. REQUESTED AND REC'D PAIN IVP AT 0930AM. PT CONTINUES TO AMBULATE AND DRINK 2ND AND 3RD CUP OF COFFEE WITH SWEET AND LOW. PT ALSO REQUESTED AND REC'D ADDITIONAL BREAKFAST SAUSAGES AND SANDWICH.
--- NOTE | 2016-06-06 11:20 | NUR ---
NOTE DR LANEC CAME TO FLOOR AT 1030AM, ASSESSMENT OF PT COMPLETED. DISCHARGE ORDER GIVEN. PT WAS NOTIFIED AND QUESTIONS/CONCERNS WERE ANSWERED. DISCHARGE/TRANSITIONAL INSTRUCTIONS GIVEN AND PRESCRIPTIONS. PT VERBALIZES UNDERSTANDING. RIGHT MIDLINE DC'D PER DR LANCE'S VERBAL ORDER AT THIS TIME. PT DRESSED IN STREET CLOTHES. PT PACKED ALL BELONGINGS AT THIS TIME. PT CHECKED SIDE TABLE AND DRAWERS FOR BELONGINGS. [employer] CALLED PER PT'S REQUEST PT HAS NO TRANSPORTATION TO GO HOME AT THIS TIME. [employer] CALLED AT THIS TIME. PICKUP TIME WILL BE IN 35-40 MINUTES PT WAS NOTIFIED AT THIS TIME. PT STANDING AT SIDE TABLE AND EATING HIS CRACKERS (VANI CRACKERS). PT WAS EDUCATED ON EATING TOO MANY VANI CRACKERS BS AT THIS TIME IS 238. PT DISMISSED EDUCTION AND STATES HE EATS WHATEVER HE WANTS. NO NAUSEA/VOMITING NOTED ALL SHIFT. CALL LIGHT WITHIN REACH.
--- NOTE | 2016-06-06 11:35 | NUR ---
NOTE PT OFF THE FLOOR TO [facility] TO GO HOME. PT HAD ALL HIS BELONGINGS AND TRANSITIONAL INSTRUCTIONS AND PRESCRIPTIONS. NO SOB/RESP DISTRESS OR PAIN/DISCOMFORT OR N/V NOTED ALL SHIFT. PT STABLE AND NO NEEDS WERE NOTED.
== END 2016-06-06 11:40 | disposition home or self-care (01) | DRG 438 ==
LOC: SED 11:19 → SMU 15:00 → MERGE 15:00 → SMU 16:05
PROVIDERS: ADMIT Internal Medicine Hospice and Palliative Medicine; ATTEND Internal Medicine Hospice and Palliative Medicine
PROC: 05H633Z Insertion of Infusion Device into Left Subclavian Vein, Percutaneous Approach (ICD-10-PCS; principal; 2016-06-03)
PROC: B547ZZA Ultrasonography of Left Subclavian Vein, Guidance (ICD-10-PCS; 2016-06-03)
DX: K85.90 Acute pancreatitis without necrosis or infection, unspecified (principal); E43 Unspecified severe protein-calorie malnutrition; Z68.1 Body mass index [BMI] 19.9 or less, adult; K86.1 Other chronic pancreatitis; F31.9 Bipolar disorder, unspecified; E11.65 Type 2 diabetes mellitus with hyperglycemia; L29.8 Other pruritus; I10 Essential (primary) hypertension; K43.9 Ventral hernia without obstruction or gangrene; E78.1 Pure hyperglyceridemia; F17.210 Nicotine dependence, cigarettes, uncomplicated; G89.4 Chronic pain syndrome; L29.9 Pruritus, unspecified; Z79.4 Long term (current) use of insulin; Z88.6 Allergy status to analgesic agent; Z88.0 Allergy status to penicillin; Z88.8 Allergy status to other drugs, medicaments and biological substances; Z91.048 Other nonmedicinal substance allergy status; Z90.411 Acquired partial absence of pancreas
CPT/HCPCS: 36415; 71010; 80053; 82150-TC; 82962; 83690-TC; 85025; 85610-TC; 85730-TC; 96361; 96374; 96375; 96376; 99285; C1751; C1769; J1170; J1200; J1815; J2270; J2405; J7030

== ENCOUNTER 2016-07-31 12:06 | Emergency (ER) | payer OTHER, MEDICAID ==
[2016-06-05 16:34] VITALS: Ht 172.7 cm; Wt 59.0 kg
[~2016-07-31] VITALS: Ht 172.7 cm; Wt 59.0 kg
[2016-07-31 12:14] VITALS: BP 105/75; PULSE 107; RESP 18; TEMP 98.3; O2SAT 96
[2016-07-31] MEDS ORDERED: NACL 0.9% 1,000 ML IV ONE ×3 (12:15→14:45)
[2016-07-31] MEDS ORDERED: DIPHENHYDRAMINE INJ 50 MG/ML VIAL IVP ONE ×2 (12:30→14:45)
[2016-07-31] MEDS ORDERED: MORPHINE 2 MG/ML INJ. SYRINGE IVP ONE ×2 (12:30→14:45)
[2016-07-31] MEDS ORDERED: ONDANSETRON HCL 4 MG/2 ML VIAL IVP ONE (12:30)
[2016-07-31 13:27] LABS: ANION GAP 14 (5-15); CALCIUM 8.8 mg/dL (8.4-11.0); CHLORIDE 97 mmol/L (98-107); CREATININE 1.06 mg/dL (0.55-1.30); POTASSIUM 4.1 mmol/L (3.5-5.1); SODIUM SERUM 130 mmol/L (136-145); UREA NITROGEN, BLOOD 22 mg/dL (8-21)
[2016-07-31 13:28] LABS: ALANINE AMINOTRANSFERASE 27 U/L (12-78); ALBUMIN 3.8 g/dL (3.4-4.8); AMYLASE 18 U/L (0-100); ASPARTATE AMINOTRANSFERASE 9 U/L (10-37); LIPASE 112 U/L (73-393); TOTAL BILIRUBIN 0.5 mg/dL (0.0-1.0); TOTAL PROTEIN, SERUM 7.5 g/dL (6.4-8.3)
[2016-07-31 13:29] LABS: PROTHROMBIN TIME 10.7 SECS (9.5-12.5)
[2016-07-31 13:37] LABS: GFR AFRICAN AMERICAN 96 mL/min (>90)
[2016-07-31 13:40] LABS: BASOPHILS % (AUTO) 0.9 % (0.0-2.0); EOSINOPHILS # (AUTO) 0.1 K/uL (0.0-0.4); EOSINOPHILS % (AUTO) 1.7 % (0.0-4.0); HEMATOCRIT 38.2 % (36-54); HEMOGLOBIN 11.7 g/dL (14.0-18.0); LYMPHOCYTES # (AUTO) 1.1 K/uL (1.0-5.5); LYMPHOCYTES % (AUTO) 29.7 % (20.5-51.5); MEAN CORPUSCULAR HEMOGLOBIN 23 pg (27-31); MEAN CORPUSCULAR HGB CONC 31 % (32-36); MEAN CORPUSCULAR VOLUME 76 fL (79.0-98.0); MONOCYTES # (AUTO) 0.3 K/uL (0.0-1.0); MONOCYTES % (AUTO) 8.6 % (1.7-9.3); NEUTROPHILS # (AUTO) 2.2 K/uL (1.8-7.7); NEUTROPHILS % (AUTO) 59.1 % (40.0-70.0); PLATELET COUNT (AUTO) 111 K/uL (130-430); RED BLOOD CELL COUNT(AUTO) 5.05 MIL/uL (4.2-6.2); WHITE BLOOD COUNT (AUTO) 3.7 K/uL (4.8-10.8)
[2016-07-31 13:42] LABS: ACETONE, SERUM MODERATE (NEGATIVE)
[2016-07-31 13:47] LABS: GLUCOSE 728 mg/dL (70-99)
[2016-07-31] MEDS ORDERED: INSULIN REGULAR, HUMAN 10 UNITS/0.1 ML INJ IVP ONE (14:00)
[2016-07-31] MEDS ORDERED: INSULIN REGULAR, HUMAN 100 UNITS in NS 99 ML IV PRN ×2 (14:00)
[2016-07-31] MEDS ORDERED: DEXTROSE 50% JECT 50 ML DISP.SYRIN IVP PRN (14:00)
[2016-07-31 16:20] VITALS: BP 113/79; PULSE 82; RESP 18; TEMP 98.2; O2SAT 97
== END 2016-07-31 16:20 | disposition home or self-care (01) ==
LOC: SED 12:06 → MERGE 12:06 → SED 16:20
DX: E11.65 Type 2 diabetes mellitus with hyperglycemia (principal); E78.5 Hyperlipidemia, unspecified; F31.9 Bipolar disorder, unspecified; Z88.1 Allergy status to other antibiotic agents; F17.200 Nicotine dependence, unspecified, uncomplicated; Z71.6 Tobacco abuse counseling; Z91.048 Other nonmedicinal substance allergy status; Z88.6 Allergy status to analgesic agent; Z88.8 Allergy status to other drugs, medicaments and biological substances
CPT/HCPCS: 36415; 80053; 82009; 82150; 82962; 83690; 83735; 85025; 85610; 85730; 96361; 96374; 96375; 96376; 99285; J1200; J2270; J2405; J7030; J1815

== ENCOUNTER 2016-08-16 17:57 | Emergency (ER) | payer OTHER, MEDICAID ==
[~2016-08-16] VITALS: Ht 172.7 cm; Wt 59.0 kg
[2016-08-16 18:03] VITALS: BP_SYST 123
[2016-08-16] MEDS ORDERED: NACL 0.9% 1,000 ML IV ONE (18:31)
[2016-08-16 18:43] LABS: BASOPHILS # (AUTO) 0.1 K/uL (0.0-0.2); BASOPHILS % (AUTO) 0.7 % (0.0-2.0); EOSINOPHILS % (AUTO) 0.4 % (0.0-4.0); HEMATOCRIT 41.3 % (36-54); HEMOGLOBIN 12.6 g/dL (14.0-18.0); LYMPHOCYTES # (AUTO) 1.6 K/uL (1.0-5.5); LYMPHOCYTES % (AUTO) 21.4 % (20.5-51.5); MEAN CORPUSCULAR HEMOGLOBIN 23 pg (27-31); MEAN CORPUSCULAR HGB CONC 31 % (32-36); MEAN CORPUSCULAR VOLUME 76 fL (79.0-98.0); MONOCYTES # (AUTO) 0.3 K/uL (0.0-1.0); MONOCYTES % (AUTO) 3.3 % (1.7-9.3); NEUTROPHILS # (AUTO) 5.6 K/uL (1.8-7.7); NEUTROPHILS % (AUTO) 74.2 % (40.0-70.0); PLATELET COUNT (AUTO) 171 K/uL (130-430); RED BLOOD CELL COUNT(AUTO) 5.44 MIL/uL (4.2-6.2); RED CELL DISTRIBUTION WIDTH 22.7 % (9.0-15.0); WHITE BLOOD COUNT (AUTO) 7.6 K/uL (4.8-10.8)
[2016-08-16] MEDS ORDERED: ONDANSETRON HCL 4 MG/2 ML VIAL IVP ONE (18:45)
[2016-08-16] MEDS ORDERED: MORPHINE 4 MG/ML INJ. SYRINGE IVP ONE ×2 (18:45→19:30)
[2016-08-16 18:59] LABS: CALCIUM 8.8 mg/dL (8.4-11.0); CREATININE 1.08 mg/dL (0.55-1.30); POTASSIUM 4.6 mmol/L (3.5-5.1)
[2016-08-16 19:03] LABS: ALBUMIN 4.5 g/dL (3.4-4.8); TOTAL BILIRUBIN 0.5 mg/dL (0.0-1.0); TOTAL PROTEIN, SERUM 8.3 g/dL (6.4-8.3)
[2016-08-16] MEDS ORDERED: HYDROmorphone 2 MG/ML VIAL IVP ONE (20:00)
== END 2016-08-16 20:54 | disposition home or self-care (01) ==
LOC: SED 17:57
DX: K85.90 Acute pancreatitis without necrosis or infection, unspecified (principal); E11.9 Type 2 diabetes mellitus without complications; F31.9 Bipolar disorder, unspecified; Z79.4 Long term (current) use of insulin; Z88.6 Allergy status to analgesic agent; Z88.0 Allergy status to penicillin; Z88.8 Allergy status to other drugs, medicaments and biological substances; Z91.048 Other nonmedicinal substance allergy status
CPT/HCPCS: 36415; 80053; 82150; 83690; 85025; 96374; 96375; 96376; 99284; J1170; J2270; J2405; J7030; 96361

== ENCOUNTER 2017-03-06 05:27 | Emergency (ER) | payer OTHER, MEDICAID ==
[~2017-03-06] VITALS: Ht 172.7 cm; Wt 54.4 kg
[2017-03-06 05:37] VITALS: BP_SYST 122
[2017-03-06] MEDS ORDERED: NACL 0.9% 1,000 ML IV ONE (05:50)
[2017-03-06] MEDS ORDERED: ONDANSETRON HCL 4 MG/2 ML VIAL IVP ONE (06:00)
[2017-03-06 06:26] LABS: BILIRUBIN,URINE NEGATIVE (NEGATIVE); BLOOD, URINE NEGATIVE (NEGATIVE); CLARITY/URINE CLEAR (CLEAR); COLOR,URINE YELLOW (YELLOW); GLUCOSE,URINE 3+ (NEGATIVE); KETONES,URINE 3+ (NEGATIVE); LEUKOCYTE ESTERASE ,URINE NEGATIVE (NEGATIVE); NITRITE, URINE NEGATIVE (NEGATIVE); PROTEIN URINE NEGATIVE (NEGATIVE); UROBILINOGEN,URINE 0.2 (0.2-1.0)
[2017-03-06 06:29] LABS: BACTERIA,URINE FEW /HPF (None Seen); RBC,URINE 0-3 /HPF (0-3); WBC,URINE 0-3 /HPF (0-3)
[2017-03-06 06:44] LABS: CALCIUM 9.2 mg/dL (8.4-11.0); CREATININE 0.91 mg/dL (0.55-1.30); POTASSIUM 4.1 mmol/L (3.5-5.1)
[2017-03-06 06:45] LABS: ALBUMIN 4.4 g/dL (3.4-4.8); TOTAL BILIRUBIN 0.6 mg/dL (0.0-1.0)
[2017-03-06] MEDS ORDERED: DIPHENHYDRAMINE INJ 50 MG/ML VIAL IVP ONE (06:45)
[2017-03-06] MEDS ORDERED: MORPHINE 4 MG/ML INJ. SYRINGE IVP ONE ×2 (06:45→07:00)
[2017-03-06 06:47] LABS: BASOPHILS % (AUTO) 0.8 % (0.0-2.0); EOSINOPHILS % (AUTO) 0.5 % (0.0-4.0); HEMATOCRIT 44.7 % (36-54); HEMOGLOBIN 14.1 g/dL (14.0-18.0); LYMPHOCYTES # (AUTO) 1.4 K/uL (1.0-5.5); LYMPHOCYTES % (AUTO) 23.6 % (20.5-51.5); MEAN CORPUSCULAR HEMOGLOBIN 26 pg (27-31); MEAN CORPUSCULAR HGB CONC 32 % (32-36); MEAN CORPUSCULAR VOLUME 82 fL (79.0-98.0); MONOCYTES # (AUTO) 0.3 K/uL (0.0-1.0); MONOCYTES % (AUTO) 4.4 % (1.7-9.3); NEUTROPHILS # (AUTO) 4.2 K/uL (1.8-7.7); NEUTROPHILS % (AUTO) 70.7 % (40.0-70.0); PLATELET COUNT (AUTO) 229 K/uL (130-430); RED BLOOD CELL COUNT(AUTO) 5.49 MIL/uL (4.2-6.2); RED CELL DISTRIBUTION WIDTH 22.6 % (9.0-15.0); WHITE BLOOD COUNT (AUTO) 5.9 K/uL (4.8-10.8)
[2017-03-06] MEDS ORDERED: PROMETHAZINE HCL 25 MG/ML AMP IVP ONE (07:00)
[2017-03-06] MEDS ORDERED: INSULIN REGULAR, HUMAN 10 UNITS/0.1 ML INJ IVP ONE ×2 (07:15)
[2017-03-06 07:50] VITALS: BP_SYST 118
== END 2017-03-06 07:50 | disposition home or self-care (01) ==
LOC: SED 05:27
DX: R10.13 Epigastric pain (principal); R11.2 Nausea with vomiting, unspecified; E11.9 Type 2 diabetes mellitus without complications; F32.9 Major depressive disorder, single episode, unspecified; F17.200 Nicotine dependence, unspecified, uncomplicated; Z79.4 Long term (current) use of insulin; Z90.49 Acquired absence of other specified parts of digestive tract; Z88.6 Allergy status to analgesic agent; Z88.5 Allergy status to narcotic agent; Z88.0 Allergy status to penicillin; Z91.048 Other nonmedicinal substance allergy status
CPT/HCPCS: 36415; 80053; 81000; 83690; 85025; 96361; 96374; 96375; 96376; 99284; J1200; J1815; J2270; J2405; J2550; J7030

== ENCOUNTER 2017-04-11 00:26 | Inpatient (IN) | payer OTHER, MEDICAID ==
[~2017-04-11] VITALS: Ht 172.7 cm; Wt 44.9 kg
[2017-04-11 00:34] VITALS: BP_SYST 114
[2017-04-11] MEDS ORDERED: HYDROmorphone 1 MG INJ. 1 MG/ML AMPUL IVP ONE ×2 (01:00→04:15)
[2017-04-11] MEDS ORDERED: HYDROmorphone 2 MG/ML VIAL IM ONE (02:15)
[2017-04-11 02:27] LABS: BASOPHILS % (AUTO) 0.7 % (0.0-2.0); EOSINOPHILS % (AUTO) 0.3 % (0.0-4.0); HEMATOCRIT 40.3 % (36-54); HEMOGLOBIN 13.1 g/dL (14.0-18.0); LYMPHOCYTES # (AUTO) 1.4 K/uL (1.0-5.5); MEAN CORPUSCULAR HEMOGLOBIN 28 pg (27-31); MEAN CORPUSCULAR HGB CONC 32 % (32-36); MEAN CORPUSCULAR VOLUME 85 fL (79.0-98.0); MONOCYTES # (AUTO) 0.3 K/uL (0.0-1.0); MONOCYTES % (AUTO) 5.8 % (1.7-9.3); NEUTROPHILS # (AUTO) 3.5 K/uL (1.8-7.7); NEUTROPHILS % (AUTO) 67.2 % (40.0-70.0); PLATELET COUNT (AUTO) 162 K/uL (130-430); RED BLOOD CELL COUNT(AUTO) 4.73 MIL/uL (4.2-6.2); RED CELL DISTRIBUTION WIDTH 19.4 % (9.0-15.0); WHITE BLOOD COUNT (AUTO) 5.2 K/uL (4.8-10.8)
[2017-04-11 02:29] LABS: CALCIUM 9.7 mg/dL (8.4-11.0); CREATININE 1.28 mg/dL (0.55-1.30); POTASSIUM 4.9 mmol/L (3.5-5.1)
[2017-04-11 02:32] LABS: ALBUMIN 3.5 g/dL (3.4-4.8); TOTAL BILIRUBIN 0.6 mg/dL (0.0-1.0)
[2017-04-11 02:52] LABS: BILIRUBIN,URINE 1+ (NEGATIVE); BLOOD, URINE NEGATIVE (NEGATIVE); CLARITY/URINE CLEAR (CLEAR); COLOR,URINE YELLOW (YELLOW); GLUCOSE,URINE 3+ (NEGATIVE); KETONES,URINE 3+ (NEGATIVE); LEUKOCYTE ESTERASE ,URINE NEGATIVE (NEGATIVE); NITRITE, URINE NEGATIVE (NEGATIVE); PH,URINE 5.5 (5.0-8.0); PROTEIN URINE NEGATIVE (NEGATIVE); UROBILINOGEN,URINE 0.2 (0.2-1.0)
[2017-04-11 03:16] LABS: BACTERIA,URINE RARE /HPF (None Seen); MUCUS,URINE None Seen /LPF (None Seen); RBC,URINE 0-3 /HPF (0-3); WBC,URINE 0-3 /HPF (0-3)
[2017-04-11] MEDS ORDERED: INSULIN REGULAR, HUMAN 10 UNITS/0.1 ML INJ SUBCUT ONE (03:30)
[2017-04-11] MEDS ORDERED: NACL 0.9% 1,000 ML IV ONE ×2 (04:00→05:00)
[2017-04-11] MEDS ORDERED: DIPHENHYDRAMINE INJ 50 MG/ML VIAL IVP ONE (04:15)
[2017-04-11] MEDS ORDERED: INSU100V9 SUBCUT (05:20)
[2017-04-11 05:54] LABS: BARBITURATE, URINE NEGATIVE (NEG <=200); BENZODIAZEPINE, URINE NEGATIVE (NEG <=150); CANNABINOID, URINE POSITIVE (NEG <=50); COCAINE, URINE NEGATIVE (NEG <=150); METHAMPHETAMINES SCREEN,URINE NEGATIVE (NEG <=500); OPIATE, URINE NEGATIVE (NEG <=100); PHENCYCLIDINE SCREEN,URINE NEGATIVE (NEG <=25); UR TRICYCLIC ANTIDEPRESSANTS NEGATIVE (NEG <=300); URINE AMPHETAMINE NEGATIVE (NEG <=500); URINE METHADONE NEGATIVE (NEG <=200); URINE OXYCODONE SCREEN NEGATIVE (NEG <=100); URINE PROPOXYPHENE SCREEN NEGATIVE (NEG <=300)
[2017-04-11] MEDS ORDERED: HYDROcodone/ACETAMIN 10-325 MG TAB PO PRN (06:15)
[2017-04-11] MEDS ORDERED: ONDANSETRON HCL 4 MG/2 ML VIAL IVP PRN (06:15)
[2017-04-11] MEDS ORDERED: ACETAMINOPHEN 325 MG TABLET PO PRN (06:15)
[2017-04-11] MEDS ORDERED: INSULIN NPH 100 UNITS/ML 10 ML VIAL SUBCUT ONE (06:15)
[2017-04-11 07:41] VITALS: BP_SYST 111
[2017-04-11 08:00] VITALS: BP_SYST 111
[2017-04-11] MEDS: INSULIN REGULAR, HUMAN 100 UNITS/ML, 10 ML VIAL (novoLIN R) SUBCUT PRN ×5 (08:10→23:01)
[2017-04-11] MEDS: HYDROmorphone 2 MG/ML VIAL IVP PRN ×4 (08:15→20:30)
[2017-04-11] MEDS: DIPHENHYDRAMINE INJ 50 MG/ML VIAL IVP PRN ×4 (08:17→20:28)
[2017-04-11] MEDS ORDERED: INSULIN NPH 100 UNITS/ML 10 ML VIAL SUBCUT SCH ×2 (09:00→18:00)
[2017-04-11] MEDS: NACL 0.9% 1,000 ML IV SCH ×3 (09:21→18:06)
[2017-04-11 12:00] VITALS: BP_SYST 136
[2017-04-11 13:25] LABS: RED BLOOD CELL COUNT(AUTO) 4.34 MIL/uL (4.2-6.2)
[2017-04-11 13:31] LABS: HEMATOCRIT 36.6 % (36-54); MEAN CORPUSCULAR HEMOGLOBIN 28 pg (27-31); MEAN CORPUSCULAR HGB CONC 33 % (32-36); MEAN CORPUSCULAR VOLUME 84 fL (79.0-98.0); PLATELET COUNT (AUTO) 127 K/uL (130-430); RED CELL DISTRIBUTION WIDTH 19.3 % (9.0-15.0); WHITE BLOOD COUNT (AUTO) 4.9 K/uL (4.8-10.8)
[2017-04-11 13:40] LABS: CALCIUM 8.9 mg/dL (8.4-11.0); CREATININE 0.96 mg/dL (0.55-1.30); POTASSIUM 3.7 mmol/L (3.5-5.1)
[2017-04-11 13:44] LABS: ALBUMIN 3.6 g/dL (3.4-4.8); TOTAL BILIRUBIN 0.2 mg/dL (0.0-1.0)
[2017-04-11 13:55] LABS: BASOPHILS % (MANUAL) 0 % (0-2); EOSINOPHILS % (MANUAL) 0 % (0-7); LYMPHOCYTES % (MANUAL) 40 % (20-46); MONOCYTES % (MANUAL) 4 % (0-11)
[2017-04-11 16:42] VITALS: BP_SYST 130
[2017-04-11] MEDS: LIPASE/PROTEASE/AMYLASE 1 CAP PO SCH (17:40)
[2017-04-11] MEDS ORDERED: AMYLASE PO SCH (18:00)
[2017-04-11] MEDS ORDERED: PROTEASE PO SCH (18:00)
[2017-04-11] MEDS ORDERED: LIPASE PO SCH (18:00)
[2017-04-11] MEDS ORDERED: [UNRECOGNIZED DRUG - OTHER] PO SCH (18:00)
[2017-04-11] MEDS: INSULIN NPH 100 UNITS/ML 10 ML VIAL SUBCUT SCH (18:50)
[2017-04-11 20:00] VITALS: BP_SYST 127
[2017-04-11] MEDS ORDERED: MAGNESIUM CITRATE 300 ML ORAL SOLUTION PO ONE (20:00)
[2017-04-12] MEDS: HYDROmorphone 2 MG/ML VIAL IVP PRN ×6 (00:20→21:16)
[2017-04-12] MEDS: DIPHENHYDRAMINE INJ 50 MG/ML VIAL IVP PRN ×6 (00:20→21:13)
[2017-04-12 00:33] VITALS: BP_SYST 122
[2017-04-12] MEDS: NACL 0.9% 1,000 ML IV SCH ×2 (00:49→11:50)
[2017-04-12] MEDS: INSULIN REGULAR, HUMAN 100 UNITS/ML, 10 ML VIAL (novoLIN R) SUBCUT PRN ×4 (03:01→21:48)
[2017-04-12 08:04] VITALS: BP_SYST 111
[2017-04-12] MEDS: LIPASE/PROTEASE/AMYLASE 1 CAP PO SCH ×3 (08:24→18:17)
[2017-04-12] MEDS: INSULIN NPH 100 UNITS/ML 10 ML VIAL SUBCUT SCH ×2 (08:30→18:19)
[2017-04-12 12:23] VITALS: BP_SYST 126
[2017-04-12 12:28] VITALS: BP_SYST 115
[2017-04-12 14:51] LABS: HEMOGLOBIN 10.6 g/dL (14.0-18.0); WHITE BLOOD COUNT (AUTO) 3.8 K/uL (4.8-10.8)
[2017-04-12 14:57] LABS: HEMATOCRIT 32.9 % (36-54); MEAN CORPUSCULAR HEMOGLOBIN 28 pg (27-31); MEAN CORPUSCULAR HGB CONC 32 % (32-36); MEAN CORPUSCULAR VOLUME 85 fL (79.0-98.0); PLATELET COUNT (AUTO) 95 K/uL (130-430); RED BLOOD CELL COUNT(AUTO) 3.87 MIL/uL (4.2-6.2); RED CELL DISTRIBUTION WIDTH 19.3 % (9.0-15.0)
[2017-04-12 15:11] VITALS: BP_SYST 103
[2017-04-12 15:11] LABS: BASOPHILS % (MANUAL) 0 % (0-2); EOSINOPHILS % (MANUAL) 3 % (0-7); LYMPHOCYTES % (MANUAL) 39 % (20-46); MONOCYTES % (MANUAL) 4 % (0-11)
[2017-04-12 15:27] LABS: POTASSIUM 4.3 mmol/L (3.5-5.1)
[2017-04-12 15:28] LABS: CALCIUM 8.2 mg/dL (8.4-11.0); CREATININE 0.63 mg/dL (0.55-1.30); FREE T4 (FREE THYROXINE) 1.1 ng/dL (0.6-1.6); THYROID STIMULATING HORMONE 1.02 uIu/mL (0.34-4.82)
[2017-04-12 20:00] VITALS: BP_SYST 122
[2017-04-12] MEDS ORDERED: DOCUSATE SODIUM 250 MG CAPSULE PO SCH (21:00)
[2017-04-13] MEDS: HYDROmorphone 2 MG/ML VIAL IVP PRN (01:43)
== END 2017-04-13 02:01 | disposition left against medical advice (07) | DRG 438 ==
LOC: SED 00:26 → STU 06:03 → SMU 04-12 18:27
PROVIDERS: ADMIT Internal Medicine; ATTEND Internal Medicine
DX: K85.90 Acute pancreatitis without necrosis or infection, unspecified (principal); E11.10 Type 2 diabetes mellitus with ketoacidosis without coma; K86.1 Other chronic pancreatitis; I10 Essential (primary) hypertension; E78.5 Hyperlipidemia, unspecified; F17.200 Nicotine dependence, unspecified, uncomplicated; F31.9 Bipolar disorder, unspecified; F43.10 Post-traumatic stress disorder, unspecified; Z88.0 Allergy status to penicillin; Z88.8 Allergy status to other drugs, medicaments and biological substances; Z91.048 Other nonmedicinal substance allergy status
CPT/HCPCS: 36415; 36600; 80048; 80053; 80061; 80307; 81000-TC; 82150-TC; 82803-TC; 82962; 83036; 83615-TC; 83690-TC; 83735-TC; 84439; 84443-TC; 85007; 85025; 85027; 96365; 96372; 96375; 99285; J1170; J1200; J1815; J7030

== ENCOUNTER 2017-05-06 10:16 | Emergency (ER) | payer OTHER, MEDICAID ==
[~2017-05-06] VITALS: Ht 172.7 cm; Wt 45.4 kg
[~2017-05-06 10:16] MED LIST changes: -DIF100 PO; +INSU100V9 SUBCUT
[2017-05-06 10:41] VITALS: BP_SYST 126
[2017-05-06] MEDS ORDERED: NACL 0.9% 1,000 ML IV ONE (11:04)
[2017-05-06] MEDS ORDERED: MORPHINE 4 MG/ML INJ. SYRINGE IVP ONE (11:15)
[2017-05-06] MEDS ORDERED: ONDANSETRON HCL 4 MG/2 ML VIAL IVP ONE (11:15)
[2017-05-06] MEDS ORDERED: DIPHENHYDRAMINE INJ 50 MG/ML VIAL IVP ONE (11:15)
[2017-05-06 11:46] LABS: BASOPHILS # (AUTO) 0.1 K/uL (0.0-0.2); BASOPHILS % (AUTO) 0.7 % (0.0-2.0); EOSINOPHILS % (AUTO) 0.1 % (0.0-4.0); LYMPHOCYTES % (AUTO) 11.9 % (20.5-51.5); MEAN CORPUSCULAR HEMOGLOBIN 26 pg (27-31); MEAN CORPUSCULAR HGB CONC 31 % (32-36); MEAN CORPUSCULAR VOLUME 85 fL (79.0-98.0); MONOCYTES # (AUTO) 0.3 K/uL (0.0-1.0); NEUTROPHILS # (AUTO) 7.4 K/uL (1.8-7.7); NEUTROPHILS % (AUTO) 84.3 % (40.0-70.0); PLATELET COUNT (AUTO) 131 K/uL (130-430); RED BLOOD CELL COUNT(AUTO) 5.32 MIL/uL (4.2-6.2); RED CELL DISTRIBUTION WIDTH 18.9 % (9.0-15.0); WHITE BLOOD COUNT (AUTO) 8.8 K/uL (4.8-10.8)
[2017-05-06 11:59] LABS: CREATININE 1.14 mg/dL (0.55-1.30); POTASSIUM 4.5 mmol/L (3.5-5.1)
[2017-05-06 12:03] LABS: ALBUMIN 3.7 g/dL (3.4-4.8); TOTAL BILIRUBIN 0.6 mg/dL (0.0-1.0)
[2017-05-06 12:14] LABS: BILIRUBIN,URINE 1+ (NEGATIVE); BLOOD, URINE NEGATIVE (NEGATIVE); CLARITY/URINE CLEAR (CLEAR); COLOR,URINE YELLOW (YELLOW); GLUCOSE,URINE 3+ (NEGATIVE); KETONES,URINE 3+ (NEGATIVE); LEUKOCYTE ESTERASE ,URINE NEGATIVE (NEGATIVE); NITRITE, URINE NEGATIVE (NEGATIVE); PH,URINE 5.5 (5.0-8.0); PROTEIN URINE NEGATIVE (NEGATIVE); UROBILINOGEN,URINE 0.2 (0.2-1.0)
[2017-05-06] MEDS ORDERED: INSULIN REGULAR, HUMAN 10 UNITS/0.1 ML INJ IVP ONE (12:30)
[2017-05-06] MEDS ORDERED: MAGNESIUM CITRATE 300 ML ORAL SOLUTION PO ONE (12:30)
[2017-05-06 12:38] LABS: BACTERIA,URINE FEW /HPF (None Seen); RBC,URINE 0-3 /HPF (0-3); WBC,URINE 0-3 /HPF (0-3)
[2017-05-06 13:37] VITALS: BP_SYST 122
== END 2017-05-06 13:27 | disposition home or self-care (01) ==
LOC: SED 10:16
DX: K59.00 Constipation, unspecified (principal); R03.0 Elevated blood-pressure reading, without diagnosis of hypertension; E11.9 Type 2 diabetes mellitus without complications; F32.9 Major depressive disorder, single episode, unspecified; Z96.41 Presence of insulin pump (external) (internal); Z79.4 Long term (current) use of insulin; Z88.0 Allergy status to penicillin; Z88.6 Allergy status to analgesic agent; Z91.048 Other nonmedicinal substance allergy status; Z88.8 Allergy status to other drugs, medicaments and biological substances
CPT/HCPCS: 36415; 74018; 76700; 80053; 81000; 83690; 85025; 96361; 96374; 96375; 99285; J1200; J2270; J2405; J7030; J1815

== ENCOUNTER 2017-06-08 21:14 | Inpatient (IN) | payer OTHER, MEDICAID ==
[~2017-06-08] VITALS: Ht 172.7 cm; Wt 55.3 kg
[2017-06-08 21:26] VITALS: BP_SYST 116
[2017-06-08] MEDS ORDERED: NACL 0.9% 1,000 ML IV ONE (22:02)
[2017-06-08] MEDS ORDERED: MORPHINE 4 MG/ML INJ. SYRINGE IVP ONE ×2 (22:15→23:30)
[2017-06-08] MEDS ORDERED: DIPHENHYDRAMINE INJ 50 MG/ML VIAL IVP ONE ×2 (22:15→23:30)
[2017-06-08] MEDS ORDERED: INSULIN REGULAR, HUMAN 10 UNITS/0.1 ML INJ IVP ONE (22:15)
[2017-06-08 22:34] LABS: BILIRUBIN,URINE NEGATIVE (NEGATIVE); BLOOD, URINE NEGATIVE (NEGATIVE); CLARITY/URINE CLEAR (CLEAR); COLOR,URINE YELLOW (YELLOW); GLUCOSE,URINE 3+ (NEGATIVE); KETONES,URINE 3+ (NEGATIVE); LEUKOCYTE ESTERASE ,URINE NEGATIVE (NEGATIVE); NITRITE, URINE NEGATIVE (NEGATIVE); PH,URINE 5.5 (5.0-8.0); PROTEIN URINE NEGATIVE (NEGATIVE); UROBILINOGEN,URINE 0.2 (0.2-1.0)
[2017-06-08 22:37] LABS: EOSINOPHILS # (AUTO) 0.1 K/uL (0.0-0.4); LYMPHOCYTES # (AUTO) 0.9 K/uL (1.0-5.5); MEAN CORPUSCULAR HGB CONC 32 % (32-36); MONOCYTES # (AUTO) 0.3 K/uL (0.0-1.0); WHITE BLOOD COUNT (AUTO) 3.8 K/uL (4.8-10.8)
[2017-06-08 22:40] LABS: BASOPHILS % (AUTO) 0.7 % (0.0-2.0); EOSINOPHILS % (AUTO) 1.7 % (0.0-4.0); HEMOGLOBIN 10.2 g/dL (14.0-18.0); LYMPHOCYTES % (AUTO) 23.3 % (20.5-51.5); MEAN CORPUSCULAR HEMOGLOBIN 26 pg (27-31); MEAN CORPUSCULAR VOLUME 81 fL (79.0-98.0); MONOCYTES % (AUTO) 7.9 % (1.7-9.3); NEUTROPHILS # (AUTO) 2.4 K/uL (1.8-7.7); NEUTROPHILS % (AUTO) 66.4 % (40.0-70.0); RED BLOOD CELL COUNT(AUTO) 3.93 MIL/uL (4.2-6.2); RED CELL DISTRIBUTION WIDTH 17.3 % (9.0-15.0)
[2017-06-08 22:40] LABS: BACTERIA,URINE RARE /HPF (None Seen); RBC,URINE 0-3 /HPF (0-3); WBC,URINE 0-3 /HPF (0-3)
[2017-06-08 22:42] LABS: PLATELET COUNT (AUTO) 84 K/uL (130-430)
[2017-06-08 22:57] LABS: ALBUMIN 2.9 g/dL (3.4-4.8); CREATININE 0.8 mg/dL (0.55-1.30); POTASSIUM 4.1 mmol/L (3.5-5.1); TOTAL BILIRUBIN 0.4 mg/dL (0.0-1.0)
[2017-06-08] MEDS ORDERED: HYDR4TAB26 PO (23:26)
[2017-06-09] MEDS ORDERED: NACL 0.9% 1,000 ML IV ONE
[2017-06-09] MEDS ORDERED: MORPHINE 2 MG/ML INJ. SYRINGE IVP PRN (01:00)
[2017-06-09] MEDS ORDERED: ACETAMINOPHEN 325 MG TABLET PO PRN (01:00)
[2017-06-09] MEDS ORDERED: DEXTROSE 50% JECT 50 ML DISP.SYRIN IVP PRN (01:00)
[2017-06-09] MEDS ORDERED: ONDANSETRON HCL 4 MG/2 ML VIAL IVP PRN (01:00)
[2017-06-09] MEDS: FAMOTIDINE PF 20 MG/2 ML VIAL IVP SCH ×3 (01:15→20:55)
[2017-06-09] MEDS ORDERED: ZOLPIDEM TARTRATE 5 MG TABLET PO PRN (01:30)
[2017-06-09] MEDS: DIPHENHYDRAMINE INJ 50 MG/ML VIAL IVP PRN ×6 (01:39→21:53)
[2017-06-09] MEDS: MORPHINE 4 MG/ML INJ. SYRINGE IVP PRN ×6 (01:40→21:53)
[2017-06-09] MEDS: NACL 0.9% 1,000 ML IV SCH ×3 (01:45→20:53)
[2017-06-09] MEDS: INSULIN REGULAR, HUMAN 100 UNITS/ML, 10 ML VIAL (novoLIN R) SUBCUT PRN ×5 (01:53→21:01)
[2017-06-09 03:30] VITALS: BP_SYST 127
[2017-06-09 08:02] LABS: ACETONE, SERUM NEGATIVE (NEGATIVE)
[2017-06-09 08:09] VITALS: BP_SYST 128
[2017-06-09 08:12] LABS: SODIUM SERUM 137 mmol/L (136-145)
[2017-06-09 08:13] LABS: ANION GAP 7 (5-15); CALCIUM 8.5 mg/dL (8.4-11.0); CHLORIDE 104 mmol/L (98-107); GFR AFRICAN AMERICAN 186 mL/min (>90); GLUCOSE 61 mg/dL (70-99); POTASSIUM 3.2 mmol/L (3.5-5.1); UREA NITROGEN, BLOOD 10 mg/dL (8-21)
[2017-06-09] MEDS: LIPASE/PROTEASE/AMYLASE 1 CAP PO SCH ×3 (08:17→17:05)
[2017-06-09] MEDS: HYDROmorphone 2 MG TAB PO SCH ×2 (08:18→20:54)
[2017-06-09 12:00] VITALS: BP_SYST 129
[2017-06-09 16:00] VITALS: BP_SYST 137
[2017-06-09] MEDS ORDERED: POTASSIUM CHLORIDE 20 MEQ TAB.PRT.SR PO ONE (16:15)
[2017-06-09 20:03] VITALS: BP_SYST 125
[2017-06-10 00:15] VITALS: BP_SYST 134
[2017-06-10] MEDS: INSULIN REGULAR, HUMAN 100 UNITS/ML, 10 ML VIAL (novoLIN R) SUBCUT PRN ×5 (00:59→21:07)
[2017-06-10] MEDS: MORPHINE 4 MG/ML INJ. SYRINGE IVP PRN ×5 (01:50→18:49)
[2017-06-10] MEDS: DIPHENHYDRAMINE INJ 50 MG/ML VIAL IVP PRN ×5 (01:51→18:49)
[2017-06-10] MEDS: NACL 0.9% 1,000 ML IV SCH ×2 (06:03→17:00)
[2017-06-10 06:24] LABS: BASOPHILS % (AUTO) 0.3 % (0.0-2.0); EOSINOPHILS # (AUTO) 0.1 K/uL (0.0-0.4); EOSINOPHILS % (AUTO) 4.2 % (0.0-4.0); HEMATOCRIT 30.9 % (36-54); HEMOGLOBIN 9.9 g/dL (14.0-18.0); LYMPHOCYTES # (AUTO) 1.4 K/uL (1.0-5.5); LYMPHOCYTES % (AUTO) 41.9 % (20.5-51.5); MEAN CORPUSCULAR HEMOGLOBIN 26 pg (27-31); MEAN CORPUSCULAR HGB CONC 32 % (32-36); MEAN CORPUSCULAR VOLUME 81 fL (79.0-98.0); MONOCYTES # (AUTO) 0.3 K/uL (0.0-1.0); MONOCYTES % (AUTO) 7.4 % (1.7-9.3); NEUTROPHILS # (AUTO) 1.6 K/uL (1.8-7.7); PLATELET COUNT (AUTO) 84 K/uL (130-430); RED CELL DISTRIBUTION WIDTH 17.2 % (9.0-15.0); WHITE BLOOD COUNT (AUTO) 3.4 K/uL (4.8-10.8)
[2017-06-10 07:18] LABS: POTASSIUM 4.1 mmol/L (3.5-5.1)
[2017-06-10 07:44] LABS: ALBUMIN 2.7 g/dL (3.4-4.8); CALCIUM 8.4 mg/dL (8.4-11.0); CREATININE 0.46 mg/dL (0.55-1.30); FREE T4 (FREE THYROXINE) 1.2 ng/dL (0.6-1.6); TOTAL BILIRUBIN 0.2 mg/dL (0.0-1.0)
[2017-06-10 08:00] VITALS: BP_SYST 139
[2017-06-10] MEDS: HYDROmorphone 2 MG TAB PO SCH ×2 (08:34→20:45)
[2017-06-10] MEDS: FAMOTIDINE PF 20 MG/2 ML VIAL IVP SCH ×3 (08:34→20:43)
[2017-06-10] MEDS: POTASSIUM CHLORIDE 20 MEQ TAB.PRT.SR PO SCH (08:34)
[2017-06-10 10:20] LABS: NEUTROPHILS % (AUTO) 46.2 % (40.0-70.0)
[2017-06-10] MEDS: LIPASE/PROTEASE/AMYLASE 1 CAP PO SCH ×2 (10:52→17:08)
[2017-06-10 12:35] VITALS: BP_SYST 136
[2017-06-10 16:25] VITALS: BP_SYST 109
[2017-06-10 19:15] VITALS: BP_SYST 101
[2017-06-10 23:54] VITALS: BP_SYST 125
[2017-06-11] MEDS: DIPHENHYDRAMINE INJ 50 MG/ML VIAL IVP PRN ×5 (00:15→15:17)
[2017-06-11] MEDS: MORPHINE 4 MG/ML INJ. SYRINGE IVP PRN ×5 (00:16→15:18)
[2017-06-11] MEDS: MORPHINE SULFATE 30 MG Immediate Release TABLET PO PRN ×3 (01:24→11:07)
[2017-06-11] MEDS: NACL 0.9% 1,000 ML IV SCH ×2 (03:44→11:47)
[2017-06-11] MEDS: LIPASE/PROTEASE/AMYLASE 1 CAP PO SCH ×2 (06:28→11:09)
[2017-06-11 07:45] VITALS: BP_SYST 108
[2017-06-11] MEDS: POTASSIUM CHLORIDE 20 MEQ TAB.PRT.SR PO SCH (08:41)
[2017-06-11] MEDS: HYDROmorphone 2 MG TAB PO SCH (08:42)
[2017-06-11] MEDS: FAMOTIDINE PF 20 MG/2 ML VIAL IVP SCH (08:42)
[2017-06-11] MEDS: INSULIN REGULAR, HUMAN 100 UNITS/ML, 10 ML VIAL (novoLIN R) SUBCUT PRN ×2 (08:50→12:29)
[2017-06-11 12:28] VITALS: BP_SYST 116
[2017-06-11 16:42] VITALS: BP_SYST 114
== END 2017-06-11 16:15 | disposition home or self-care (01) | DRG 438 ==
LOC: SED 21:14 → STU 06-09 → SMU 06-10 20:13
PROVIDERS: ADMIT Internal Medicine; ATTEND Internal Medicine
DX: K85.90 Acute pancreatitis without necrosis or infection, unspecified (principal); E11.10 Type 2 diabetes mellitus with ketoacidosis without coma; E44.1 Mild protein-calorie malnutrition; Z68.1 Body mass index [BMI] 19.9 or less, adult; F12.90 Cannabis use, unspecified, uncomplicated; D63.8 Anemia in other chronic diseases classified elsewhere; K86.1 Other chronic pancreatitis; F31.9 Bipolar disorder, unspecified; G89.4 Chronic pain syndrome; F43.10 Post-traumatic stress disorder, unspecified; Z90.49 Acquired absence of other specified parts of digestive tract; Z88.0 Allergy status to penicillin; Z88.8 Allergy status to other drugs, medicaments and biological substances; Z91.048 Other nonmedicinal substance allergy status
CPT/HCPCS: 36415; 80048; 80053; 80061; 81000-TC; 82009-TC; 82962; 83036; 83690-TC; 83735-TC; 84439; 85025; 87081; 96361; 96374; 96375; 96376; 99285; J1200; J1815; J2270; J2274; J3490; J7030

== ENCOUNTER 2017-08-14 15:37 | Emergency (ER) | payer OTHER, MEDICAID ==
[~2017-08-14] VITALS: Ht 172.7 cm; Wt 59.0 kg
[~2017-08-14 15:37] MED LIST changes: +Fingerstick Blood Glucose Test XX; +HYDR4TAB26 PO; +INSNPH7030 SUBCUT; +INSU100V11 SUBCUT; +LINA5TAB2 PO; -SSREG SUBCUT
[2017-08-14 16:06] VITALS: BP_SYST 131
[2017-08-14] MEDS ORDERED: NACL 0.9% 1,000 ML IV ONE ×3 (16:12→18:45)
[2017-08-14] MEDS ORDERED: ONDANSETRON HCL 4 MG/2 ML VIAL IVP ONE (16:15)
[2017-08-14 16:40] LABS: LYMPHOCYTES # (AUTO) 0.8 K/uL (1.0-5.5); MONOCYTES # (AUTO) 0.2 K/uL (0.0-1.0)
[2017-08-14 16:44] LABS: CREATININE 0.86 mg/dL (0.55-1.30); POTASSIUM 3.9 mmol/L (3.5-5.1); PROTHROMBIN TIME 10.1 SECS (9.5-12.5)
[2017-08-14 16:46] LABS: ALBUMIN 3.1 g/dL (3.4-4.8); TOTAL BILIRUBIN 0.5 mg/dL (0.0-1.0)
[2017-08-14 16:49] LABS: BASOPHILS % (AUTO) 1.4 % (0.0-2.0); EOSINOPHILS % (AUTO) 0.4 % (0.0-4.0); HEMATOCRIT 34.8 % (36-54); HEMOGLOBIN 10.9 g/dL (14.0-18.0); LYMPHOCYTES % (AUTO) 26.2 % (20.5-51.5); MEAN CORPUSCULAR HEMOGLOBIN 23 pg (27-31); MEAN CORPUSCULAR HGB CONC 31 % (32-36); MEAN CORPUSCULAR VOLUME 72 fL (79.0-98.0); MONOCYTES % (AUTO) 5.7 % (1.7-9.3); NEUTROPHILS % (AUTO) 66.3 % (40.0-70.0); PLATELET COUNT (AUTO) 141 K/uL (130-430); RED BLOOD CELL COUNT(AUTO) 4.81 MIL/uL (4.2-6.2); RED CELL DISTRIBUTION WIDTH 18.4 % (9.0-15.0)
[2017-08-14] MEDS ORDERED: INSULIN REGULAR, HUMAN 10 UNITS/0.1 ML INJ IVP ONE ×3 (17:00→20:00)
[2017-08-14] MEDS ORDERED: MORPHINE 4 MG/ML INJ. SYRINGE IVP ONE ×3 (17:30→21:30)
[2017-08-14] MEDS ORDERED: DIPHENHYDRAMINE INJ 50 MG/ML VIAL IVP ONE ×4 (17:30→21:30)
[2017-08-14 18:57] LABS: BILIRUBIN,URINE NEGATIVE (NEGATIVE); BLOOD, URINE NEGATIVE (NEGATIVE); CLARITY/URINE CLEAR (CLEAR); COLOR,URINE YELLOW (YELLOW); GLUCOSE,URINE 3+ (NEGATIVE); KETONES,URINE 3+ (NEGATIVE); LEUKOCYTE ESTERASE ,URINE NEGATIVE (NEGATIVE); NITRITE, URINE NEGATIVE (NEGATIVE); PROTEIN URINE NEGATIVE (NEGATIVE); UROBILINOGEN,URINE 0.2 (0.2-1.0)
[2017-08-14 19:03] LABS: BACTERIA,URINE FEW /HPF (None Seen); RBC,URINE 0-3 /HPF (0-3); WBC,URINE 0-3 /HPF (0-3)
[2017-08-14 19:04] LABS: YEAST,URINE Rare /HPF (None Seen)
[2017-08-14 21:14] LABS: CALCIUM 7.1 mg/dL (8.4-11.0); CREATININE 0.68 mg/dL (0.55-1.30); POTASSIUM 3.2 mmol/L (3.5-5.1)
[2017-08-14] MEDS ORDERED: POTASSIUM CHLORIDE 20 MEQ TAB.PRT.SR PO ONE (21:30)
[2017-08-14 22:10] VITALS: BP_SYST 145
== END 2017-08-14 22:10 | disposition home or self-care (01) ==
LOC: SED 15:37
DX: R10.13 Epigastric pain (principal); E11.65 Type 2 diabetes mellitus with hyperglycemia; E11.43 Type 2 diabetes mellitus with diabetic autonomic (poly)neuropathy; K31.84 Gastroparesis; F32.9 Major depressive disorder, single episode, unspecified; Z88.6 Allergy status to analgesic agent; Z88.1 Allergy status to other antibiotic agents; Z88.8 Allergy status to other drugs, medicaments and biological substances; Z79.899 Other long term (current) drug therapy
CPT/HCPCS: 36415; 36600; 71045; 80048; 80053; 81000; 82150; 82550; 82803; 83690; 85025; 85610; 85730; 93005; 96361; 96374; 96375; 96376; 99285; J1200; J1815; J2270; J2405; J7030